=== PATIENT | male | born 1935 | race African-American/Black ===

== ENCOUNTER 2020-12-09 15:10 | Emergency (ER) | payer MEDICARE, MEDICAID ==
[~2020-12-09] VITALS: Ht 182.9 cm; Wt 70.0 kg
[2020-12-09 16:18] LABS: CHLORIDE 104 mEq/L (98-107)
[2020-12-09 16:22] LABS: BASOPHILS % 0.8 % (0.0-2.0); EOSINOPHILS % 1.9 % (0.0-5.0); HEMATOCRIT. 43.1 % (42.0-52.0); HEMOGLOBIN. 14.7 g/dL (14.0-18.0); MEAN CORPUSCULAR HEMOGLOBIN 32.6 pg (28.0-32.0); MEAN CORPUSCULAR VOLUME 95.9 fL (80.0-94.0); MEAN PLATELET VOLUME 7.3 fl (7.4-10.4); MONOCYTES % 12.4 % (2.0-8.0); NEUTROPHILS % 55.9 % (40.0-76.0); PLATELET 228 x1000/uL (130-400); RED CELL DISTRIBUTION WIDTH 13.9 % (11.6-14.6)
[2020-12-09 16:38] LABS: D-DIMER < 0.19 mg/L FEU (<0.50)
[2020-12-09] MEDS ORDERED: SODIUM CHLORIDE 0.9% 1,000 ML IV ONE (17:00)
[2020-12-09] MEDS ORDERED: IOHEXOL-350 100 ML BOTTLE ONE (19:43)
[2020-12-09 19:45] VITALS: BP 153/89
== END 2020-12-09 20:05 | disposition home or self-care (01) ==
LOC: ER 15:10
DX: I83.892 Varicose veins of left lower extremity with other complications (principal); N17.9 Acute kidney failure, unspecified; R00.0 Tachycardia, unspecified; I10 Essential (primary) hypertension; E11.9 Type 2 diabetes mellitus without complications; J44.9 Chronic obstructive pulmonary disease, unspecified; I25.10 Atherosclerotic heart disease of native coronary artery without angina pectoris; Z86.73 Personal history of transient ischemic attack (TIA), and cerebral infarction without residual deficits; Z86.718 Personal history of other venous thrombosis and embolism; Z95.1 Presence of aortocoronary bypass graft; Z79.01 Long term (current) use of anticoagulants; Z79.82 Long term (current) use of aspirin; Z79.899 Other long term (current) drug therapy
CPT/HCPCS: 36415; 71045; 73706; 80053; 83880; 84484; 85025; 85379; 85610; 93005; 93970; 99285; Q9967